=== PATIENT | male | born 1980 | race Caucasian/White ===

== ENCOUNTER 2018-04-22 09:49 | Inpatient (IN) | payer BC, SELFPAY ==
[~2018-04-22 09:49] MED LIST: NA CHLORIDE 0.9% 2,000 ML ONE
[2018-04-22] MEDS ORDERED: NOREPINEPHRINE 4mg/D5W 250mL 4 MG/250 ML BAG IV ONE (10:23)
[2018-04-22] MEDS ORDERED: LORazepam 2 MG/ML VIAL ONE (10:37)
[2018-04-22] MEDS ORDERED: EPINEPHrine 1 MG/10 ML SYR ONE (10:54)
--- NOTE | 2018-04-22 11:03 | RAD REPORT ---
EXAM DESCRIPTION: RAD - Chest Single View - 04/22/2018 10:55 am CLINICAL HISTORY: unresponsive Chest pain. COMPARISON: CHEST PA AND LAT 2 VIEW dated 11/16/2013; CHEST PA AND LAT 2 VIEW dated 06/10/2004 FINDINGS: Portable technique limits examination quality. Opacities in both upper lobes noted likely representing pneumonia or asymmetric pulmonary edema. Tip of the ET tube is above the mellisa. Enteric tube descends in the stomach. The heart size is normal.
[2018-04-22 11:27] LABS: Absolute Lymphocytes (CBC) 5.6 K/uL (0.7-4.9); Absolute Monocytes 0.7 K/uL (0.1-1.3); Absolute Neutrophil 11.2 K/uL (1.8-8.0); Basophils % 0.4 % (0-1.3); Eosinophils % 1.7 % (0-4.4); Hematocrit 38.7 % (39.6-49.0); Lymphocytes % 31.3 % (15.3-44.8); MCH 31.7 pg (27.0-35.0); MCV 101.2 fL (80-100); MPV 8.5 fL (7.6-11.3); Monocytes % 3.9 % (3.3-12.3); RBC Red Blood Cell Count 3.82 M/uL (4.33-5.43)
[2018-04-22 11:30] LABS: Protime INR 1.23
[2018-04-22] MEDS ORDERED: AZITHROMYCIN 500 MG/250 ML BAG ONE (11:48)
[2018-04-22] MEDS ORDERED: CEFTRIAXONE/SWI 1gm 1 GM/10 ML SYR ONE (11:48)
[2018-04-22 11:53] LABS: ALT/SGPT 132 U/L (12-78); AST/SGOT 152 U/L (15-37); Albumin 2.4 g/dL (3.4-5.0); Alkaline Phosphatase 91 U/L (45-117); BUN Blood Urea Nitrogen 11 mg/dL (7-18); Bicarbonate 18 mmol/L (21-32); Bilirubin Direct < 0.1 mg/dL (0-0.2); Bilirubin Total 0.2 mg/dL (0.2-1.0); Creatine Phosphokinase 529 U/L (39-308); Glucose Level 387 mg/dL (74-106); NT PRO-BNP 7 pg/mL (<125); Potassium 3.4 mmol/L (3.5-5.1); Protein, Total 4.7 g/dL (6.4-8.2); Sodium Level 148 mmol/L (136-145)
[2018-04-22 11:55] LABS: CKMB Creatine Kinase MB 56.8 ng/mL (0.3-3.6)
--- NOTE | 2018-04-22 11:56 | ER ---
Nurse's Notes [facility] Name: Phil Smart Age: 37 yrs Sex: Male : 1980 Arrival Date: 04/22/2018 Time: 09:59 Bed 4 Private MD: Diagnosis: Cardiac arrest;Pneumonia;Non-ST elevation (NSTEMI) myocardial infarction Presentation: 04/22 09:59 Presenting complaint: EMS states: pt was found to be unresponsive at the job site by co sg workers, purple discoloration noted from nipple line to head, CPR administered at scene, pt covered in own vomitus, big chunky. Transition of care: patient was not received from another setting of care. Onset of symptoms was April 22, 2018. Risk Assessment: Do you want to hurt yourself or someone else? Patient reports no desire to harm self or others. Initial Sepsis Screen: Does the patient meet any 2 criteria? No. Patient's initial sepsis screen is negative. Does the patient have a suspected source of infection?. Care prior to arrival: Oral airway placed, a mateo tube CPR via thumper performed by EMS and is still in progress Medication(s) given: EPIx 6, Sodium Bicarb x1 IV initiated. IO X 2 L collins and R collins Glucose check: 148 Oxygen administered. via AMBU bag. 09:59 Acuity: HI 1 sg 09:59 Method Of Arrival: EMS: [facility] sg 09:59 Activity prior to arrival: unresponsive. sg 09:59 Compressions began prior to arrival. sg Historical: - Allergies: 12:13 No Known Allergies; sg - Home Meds: 10:15 Unable to obtain [Active]; sg - PMHx: 10:15 Unable to obtain; sg - PSHx: 10:15 Unable to obtain; sg - Immunization history:: Adult Immunizations unknown. - Social history:: Smoking status: unknown. - Ebola Screening: : Unable to complete screening because patient is unresponsive. - Unable to obtain history due to: comatose state, unresponsive. Screenin:56 Abuse screen: unable to obtain d/t pt condition. Nutritional screening: No deficits sg noted. Tuberculosis screening: unable to obtain d/t pt condition . Fall Risk None identified. Assessment: 09:56 CPR assessment: unresponsive, pupils fixed \T\ dilated, no respiratory effort, intubated, sg Ambu ventilation, pale, pulses present w/ compressions. Cardiac rhythm is PEA. 09:57 CPR assessment: unresponsive, pupils fixed \T\ dilated, no respiratory effort, intubated, sg Ambu ventilation, pale, pulses present w/ compressions. 10:00 CPR assessment: unresponsive, pupils fixed \T\ dilated, no respiratory effort, intubated, sg Ambu ventilation, pulses present w/ compressions. Cardiac rhythm is PEA. Cardiac rhythm is PEA. 10:00 General: Appears distressed, unkempt, Behavior is unresponsive. Neuro: Level of sg Consciousness is unresponsive. Respiratory: a mateo tube is noted via oral airway, pt ventilated via AmbuBag with 100 % o2 at 15 lpm. GI: Abdomen is round distended, dried vomit noted on pt face neck and chest, on clothing that is cut by EMS RN SANE. Derm: Skin is pale, Skin temperature is cool. 10:03 CPR assessment: unresponsive, pupils fixed \T\ dilated, no respiratory effort, intubated, sg Ambu ventilation, pale, pulses present w/ compressions. Cardiac rhythm is PEA. 10:07 CPR assessment: unresponsive, pupils fixed \T\ dilated, no respiratory effort, intubated, sg Ambu ventilation, pale, pulses present w/ compressions. Cardiac rhythm is PEA. 10:12 CPR assessment: unresponsive, pupils fixed \T\ dilated, no respiratory effort, intubated, sg Ambu ventilation, pale, pulses present w/ compressions. Cardiac rhythm is PEA. 10:14 Cardiac rhythm is palpable pulses noted to L carotid and R femoral per ER staff. sg 10:18 Reassessment: Pt belongings Black Socks, brown boots, a black wallet, keys with small sg black aldrich chain, a white color watch, remains at pt bedside until family arrives. 10:20 CPR assessment: unresponsive, pupils fixed \T\ dilated, no respiratory effort, intubated, sg mechanical ventilation, pulses present w/ compressions, at bedside. Cardiac rhythm is PEA. 10:24 Reassessment: No pulse, CPR initiated, at bedside. sg 10:28 CPR assessment: unresponsive, pupils fixed \T\ dilated, no respiratory effort, intubated, sg mechanical ventilation, pale, pulses present w/ compressions. Cardiac rhythm is bradycardia. 10:33 CPR assessment: unresponsive, pupils fixed \T\ dilated, no respiratory effort, intubated, sg mechanical ventilation, pale, pulses present w/ compressions. Cardiac rhythm is PEA. 10:37 CPR assessment: unresponsive, pupils fixed \T\ dilated, no respiratory effort, intubated, sg Ambu ventilation, pale, pulses present w/ compressions. Cardiac rhythm is PEA. 10:50 Cardiac rhythm is SR 87 bpm, palpable right femoral. sg 10:50 General: Appears distressed, obese, unkempt, Behavior is unresponsive. Pain: Unable to sg use pain scale. Patient is unresponsive. Neuro: Level of Consciousness is unresponsive, Oriented to none. Cardiovascular: Pulses are palpable in right femoral artery and left carotid pulse. Respiratory: Airway is patent via oral airway Respiratory pattern is symmetrical. GI: Abdomen is round distended. : No deficits noted. EENT: No deficits noted. Derm: Skin is intact, Skin is pink, Skin temperature is warm. Musculoskeletal: No signs and/or symptoms reported regarding the musculoskeletal system. 11:22 Reassessment: pt brother speaking with , instructed to with hold CPR if the pt sg were to code again, per family wishes. 12:08 Reassessment: notified of EKG changes, awaiting new orders at this time. sg Reassessment: pt remains on monitors and [employer] at this time,awaiting EKG and Resp prior to pt transport to CT. 12:12 Reassessment: EKG at bedside at this time. sg 12:24 Reassessment: Pt transported to CT with natasha urena RT, and Jeremiah RN. hb 12:31 Reassessment: Pt returned from CT. hb 12:40 Reassessment: at bedside evaluating pt at this time, family at bedside, sg awaiting a bed assignment for admission, awaiting CT scan results, will continue to monitor. 13:00 Reassessment: Patient appears in no apparent distress at this time. pt remains sg intubated, unresponsive to verbal/tactile stimuli, pt remains on monitors at this time, srx 2, bed in low and locked position Patient states symptoms have not improved. Vital Signs: 09:57 Temp 97.9(R); sg 10:09 Temp 96.2(R); sg 10:14 BP 78 / 65; Pulse 52 MON; Resp 12 A; Pulse Ox 90% on 100% FiO2 ETT vent; sg 10:29 BP 151 / 85; Pulse 80 LF; Resp 16 A; Pulse Ox 97% on 100% FiO2 ETT vent; sg 10:39 BP 106 / 71; Pulse 84 MON; Resp 14 A; Pulse Ox 96% on 100% FiO2 ETT vent; sg 10:46 Pulse 32 MON; sg 11:03 BP 58 / 50; Pulse 50; Resp 14 A; Pulse Ox 98% on 100% FiO2 ETT vent; sg 11:18 BP 90 / 56; Pulse 78 LF; Resp 16 A; Pulse Ox 99% on 100% FiO2 ETT vent; sg 11:34 BP 104 / 64; Pulse 75; Resp 16 A; Pulse Ox 99% on 100% FiO2 ETT vent; Weight 124.74 kg; sg 12:06 BP 103 / 51; Pulse 100; Resp 20 A; Pulse Ox 99% on 100% FiO2 ETT vent; sg 12:25 BP 92 / 60; Pulse 92 MON; Resp 20 S; Pulse Ox 100% on 100% FiO2 ETT vent; sg 13:00 BP 95 / 62; Pulse 103 MON; Resp 20; Pulse Ox 99% on 100% FiO2 ETT vent; sg 13:30 BP 82 / 48; Pulse 108 MON; Resp 20 A; Pulse Ox 99% on 100% FiO2 ETT vent; sg 10:46 PEA, CPR initiated sg Vitals: 13:00 Cardiac Rhythm Assessment Sinus rhythm. ED Course: 09:50 Inserted saline lock: 20 gauge in left antecubital area, using aseptic technique. IV sg inserted by Julee JUNE. 09:59 Patient arrived in ED. 10:04 Intubation: Ventilated with 100% bag valve mask (BVM) prior to procedure. O2 saturation sg prior to procedure was 74 %. 7.5 Fr. ETT placed orally. Performed by Arnol Keita MD Successful on third attempt. Placement verified by CO2 detector w/ + color change, auscultating bilateral breath sounds, O2 saturation after procedure was 97 %. 10:04 ETT measures 24 cm at the teeth. sg 10:04 Assisted provider with intubation using 7.5 mm ETT via oral route. ET tube secured at sg 24cm at the teeth. Intubated by Arnol Keita MD Placement verified by CO2 detector w/ + color change, auscultating bilateral breath sounds. 10:06 NGT: inserted 18 Fr. via left nare. to intermittent suction. sg 10:07 Triage completed. sg 10:14 Arnol Keita MD is Attending Physician. rn 10:15 Patient has correct armband on for positive identification. Bed in low position. Call sg light in reach. Side rails up X2. 10:16 Arm band placed on. sg 10:21 Jeremiah Hernandez, RN is Primary Nurse. sg 10:36 Assisted provider with central line placement. Set up central line tray. Triple lumen sg line placed in right femoral. Line placed by Arnol Keita MD Placement verified by blood return, Dressed with Tegaderm, Patient tolerated well. Before procedure, did Practitioner(s) obtain informed consent? No. Patient \T\ family education about procedure, CLABSI prevention and S/S of infection? No. Time-out/Briefing performed prior to start of procedure? Yes. Was handwashing/sanitizing done immediately prior to procedure? Yes. Was patient positioned to in a way to prevent air embolism? Yes. Was procedure site sterilized? Yes, with Iodine per physician request. Was the site allowed to dry? Yes. Was local anesthetic and/or sedation utilized? Yes. During the procedure, did the Practitioner(s) maintain a sterile field? Yes. Were unused ports clamped during insertion? Yes. Was a 2nd qualified MD obtained after 3 unsuccessful insertion attempts? No. Was blood aspirated from each lumen? Yes. After the procedure, did the Practitioner(s) clean the site and apply a sterile dressing? Yes. 10:42 Assisted provider with intubation Placement verified by CXR. sg 10:56 XRAY Chest (1 view) In Process Unspecified. EDMS 11:00 X-ray completed. jb2 11:03 EKG done, by nursing technician. reviewed by Arnol Keita MD times three. at1 11:55 Abimbola Kennedy MD is Hospitalizing Provider. rn 12:00 Lerner cath inserted, using sterile technique, 16 Fr., by ED staff, balloon inflated, to sg gravity drainage, Patient tolerated pt remains unresponsive at this time no urine output noted, will reassess. 13:50 Patient admitted, IV remains in place. intact, No redness/swelling at site. sg Administered Medications: 09:53 Drug: EPINEPHrine 0.1mg/mL 1:10,000 1 mg Route: IVP; Site: left antecubital; sg 09:54 Drug: Sodium Bicarbonate 1 amp Route: IVP; Site: left antecubital; sg 09:57 Drug: EPINEPHrine 0.1mg/mL 1:10,000 1 mg Route: IVP; Site: left antecubital; sg 10:00 Drug: Succinylcholine 100 mg Route: IVP; Site: left antecubital; sg 10:01 Drug: EPINEPHrine 0.1mg/mL 1:10,000 1 mg Route: IVP; Site: left antecubital; sg 10:04 Drug: EPINEPHrine 0.1mg/mL 1:10,000 1 mg Route: IVP; Site: left antecubital; sg 10:04 Drug: Sodium Bicarbonate 1 amp Route: IVP; Site: left antecubital; sg 10:08 Drug: EPINEPHrine 0.1mg/mL 1:10,000 1 mg Route: IVP; Site: left antecubital; sg 10:08 Drug: Sodium Bicarbonate 1 amp Route: IVP; Site: left antecubital; sg 10:11 Drug: Sodium Bicarbonate 1 amp Route: IVP; Site: left antecubital; sg 10:18 Drug: NS 0.9% 1000 ml Route: IV; Rate: 1000 ml; Site: left antecubital; sg 10:18 Drug: Levophed (4 mg/250 mL D5W 4 mcg/min Route: IV; Rate: calculated rate; Site: left sg antecubital; 10:38 Follow up: Rate change 15 mcg/min; IV SiteChange: right femoral; IV SiteChange Reason: sg Infiltration; site change for more therapeutic results through central line access 11:06 Follow up: Rate change 20 mcg/kg/min sg 12:40 Follow up: Rate change 25 mcg/min hb 10:35 Drug: EPINEPHrine 0.1mg/mL 1:10,000 1 mg Route: IVP; Site: left antecubital; sg 10:36 Drug: Ativan 2 mg Route: IVP; Site: left antecubital; sg 10:48 Drug: EPINEPHrine 0.1mg/mL 1:10,000 1 mg Route: IVP; Site: right femoral; sg 10:50 Drug: Sodium Bicarbonate 1 amp Route: IVP; Site: right femoral; sg 11:10 Drug: Dopamine drip 5 mcg/kg/min - (DOPamine 400 mg, D5W 250 ml) Route: IV; Rate: sg calculated rate; Site: right femoral; 11:48 Drug: AZITHromycin 500 mg Route: IVPB; Infused Over: 1 hrs; Site: right femoral; sg 11:50 Drug: Rocephin - (cefTRIAXone) 1 grams Route: IVPB; Infused Over: 30 mins; Site: left sg antecubital; 11:57 Drug: D5W 1000 ml, Sodium Bicarbonate 150 mEq Route: IV; Rate: 150 ml/hr; Site: right sg femoral; Point of Care Testing: Blood Glucose: 09:50 Blood Glucose: 202 mg/dL; sg Ranges: Intake: Ventilator: 10:04 Fi02: 100%; Rate: 16min; T.V.: 550ml; Peep: 5cm; ET tube: 7.5 mm (Oral); sg 10:04 Fi02: 100%; Rate: 20min; T.V.: 550ml; Peep: 5cm; ET tube: 7.5 mm; sg 10:04 AC MODE sg 10:04 AC MODE sg Outcome: 11:56 Decision to Hospitalize by Provider. rn 13:50 Admitted to ICU accompanied by nurse, accompanied by tech, via stretcher, room 6, with sg chart, Report called to Alix JUNE 13:50 critical 13:50 Instructed on pt family counseled on the need for admit, pt belongings remain in belonging bag x2 in exam room 4 prior to transport, pt belongings placed on stretcher and transported to ICU with pt for admission Demonstrated understanding of instructions. 13:50 Outcome Resuscitation successful sg 13:52 Patient left the ED. Signatures: Dispatcher [employer] EDMS Jeremiah Hernandez RN RN Jesus Alvarez2 Arnol Keita MD MD rn Smirch, Shelby, RN RN Mariola Pennington, business team leader EKG Tat1 Julee Anaya RN RN Corrections: (The following items were deleted from the chart) 10:13 09:59 Care prior to arrival: Oral airway placed, a mateo tube CPR via thumper performed sg by EMS and is still in progress Medication(s) given: sg 11:29 10:06 NGT: inserted 18 Fr. via right nare. to intermittent suction. sg sg 11:52 09:57 CPR assessment: unresponsive, pupils fixed \T\ dilated, no respiratory effort, sg intubated, Ambu ventilation, pale, pulses present w/ compressions, sg 17:46 13:50 Instructed on pt family counseled on the need for admit Demonstrated sg understanding of instructions, sg
--- NOTE | 2018-04-22 11:57 | EDPHYS ---
Physician Documentation [facility] Name: Phil Smart Age: 37 yrs Sex: Male : 1980 Arrival Date: 04/22/2018 Time: 09:59 Bed 4 Private MD: ED Physician Arnol Keita HPI: 04/22 11:34 This 37 yrs old Male presents to ER via EMS with complaints of CPR, rn Unresponsive. 11:34 Preceding the arrest, the patient collapsed, was found down. The arrest occurred at rn work. The patient has not experienced similar symptoms in the past. The patient has not recently seen a physician. Found down at work, unwitnessed, CPR by EMS for 30 min, no known history, asystole, never cardiac activity per EMS, mateo tube in place, continued to throw up entire time with EMS. . Historical: - Allergies: 12:13 No Known Allergies; sg - Home Meds: 10:15 Unable to obtain [Active]; sg - PMHx: 10:15 Unable to obtain; sg - PSHx: 10:15 Unable to obtain; sg - Immunization history:: Adult Immunizations unknown. - Social history:: Smoking status: unknown. - Ebola Screening: : Unable to complete screening because patient is unresponsive. - Unable to obtain history due to: comatose state, unresponsive. ROS: 11:44 Unable to obtain ROS due to comatose state. rn Exam: 11:44 Constitutional: Overweight male, GCS 3, ongoing CPR Head/Face: Normocephalic, rn atraumatic. Eyes: Pupils 7mm, unreactive ENT: oropharynx with copius vomitus and gastric contents, suction unable to keep up, has mateo tube in place Cardiovascular: no spont cardiac activity Respiratory: diminished breath sounds bilaterally, no spont breaths Abdomen/GI: firm, distended MS/ Extremity: No spont pulses Neuro: GCS 3, unresponsive Vital Signs: 09:57 Temp 97.9(R); sg 10:09 Temp 96.2(R); sg 10:14 BP 78 / 65; Pulse 52 MON; Resp 12 A; Pulse Ox 90% on 100% FiO2 ETT vent; sg 10:29 BP 151 / 85; Pulse 80 LF; Resp 16 A; Pulse Ox 97% on 100% FiO2 ETT vent; sg 10:39 BP 106 / 71; Pulse 84 MON; Resp 14 A; Pulse Ox 96% on 100% FiO2 ETT vent; sg 10:46 Pulse 32 MON; sg 11:03 BP 58 / 50; Pulse 50; Resp 14 A; Pulse Ox 98% on 100% FiO2 ETT vent; sg 11:18 BP 90 / 56; Pulse 78 LF; Resp 16 A; Pulse Ox 99% on 100% FiO2 ETT vent; sg 11:34 BP 104 / 64; Pulse 75; Resp 16 A; Pulse Ox 99% on 100% FiO2 ETT vent; Weight 124.74 kg; sg 12:06 BP 103 / 51; Pulse 100; Resp 20 A; Pulse Ox 99% on 100% FiO2 ETT vent; sg 12:25 BP 92 / 60; Pulse 92 MON; Resp 20 S; Pulse Ox 100% on 100% FiO2 ETT vent; sg 13:00 BP 95 / 62; Pulse 103 MON; Resp 20; Pulse Ox 99% on 100% FiO2 ETT vent; sg 13:30 BP 82 / 48; Pulse 108 MON; Resp 20 A; Pulse Ox 99% on 100% FiO2 ETT vent; sg 10:46 PEA, CPR initiated sg Ventilator: 10:04 Fi02: 100%; Rate: 16min; T.V.: 550ml; Peep: 5cm; ET tube: 7.5 mm (Oral); sg 10:04 Fi02: 100%; Rate: 20min; T.V.: 550ml; Peep: 5cm; ET tube: 7.5 mm; sg 10:04 AC MODE sg 10:04 AC MODE sg Procedures: 11:47 CPR: See CPR flow sheet. Initial patient assessment: unresponsive, pulses present w/ rn compressions, The presenting cardiac rhythm is asystole. ventilations per thumper, mateo tube, Compressions: began prior to arrival. Meds given: See Meds list. Atropine Epinephrine regained rhythm, Family notified. Intubation: Ventilated with 100% NRB prior to procedure. O2 saturation prior to procedure was 25 %. Intubated orally using # 4 Derick blade with 7.5 mm ETT. Successful on third attempt. Cricoid pressure applied during procedure. Tube secured at right side of mouth measured 23 cm at teeth. Placement verified by CXR, CO2 detector with (+) color change, auscultating bilateral breath sounds, O2 saturation after procedure was 97 %. Patient tolerated well. Central Line: the site was prepped with Betadine, in sterile fashion, a triple lumen catheter was inserted, in the right femoral vein, in 1 attempts. placement was verified, by blood return, the patient tolerated the procedure, well. MDM: 10:14 Patient medically screened. rn 11:47 Differential diagnosis: arrythmia, cardiac arrest, respiratory arrest, traumatic rn injury. Data reviewed: vital signs, nurses notes, lab test result(s), and as a result, I will admit patient. Counseling: I had a detailed discussion with the patient and/or guardian regarding: the historical points, exam findings, and any diagnostic results supporting the discharge/admit diagnosis, lab results, radiology results, the need for further work-up and treatment in the hospital. 11:47 Response to treatment: the patient's symptoms have mildly improved after treatment. fountain pen turner orders: after a detailed discussion of the patient's condition and case, the admit orders are written by me. ED course: Pt regained pulse and cardiac activity, spoke with family, aware of how sick he is, global ischemia on ECG, on dopamine and levophed, family most recently state if loses pulse again to not perform CPR/ACLS, otherwise ok with abx and drips. Notified Dr. Kennedy, admit to ICU. . 04/22 10:40 Order name: Basic Metabolic Panel; Complete Time: 12:33 04/22 10:40 Order name: CBC with Diff; Complete Time: 12:04/22 10:40 Order name: Ckmb; Complete Time: 12:04/22 10:40 Order name: CPK; Complete Time: 12:04/22 10:40 Order name: LFT's; Complete Time: 12:04/22 10:40 Order name: Magnesium; Complete Time: 12:04/22 10:40 Order name: NT PRO-BNP; Complete Time: 12:04/22 10:40 Order name: PT-INR; Complete Time: :43 04/22 10:40 Order name: Ptt, Activated; Complete Time: :43 04/22 10:40 Order name: Troponin (emerg Dept Use Only); Complete Time: 12:33 04/22 10:40 Order name: XRAY Chest (1 view); Complete Time: 11:29 rn 04/22 10:40 Order name: CT Head Brain wo Cont rn 04/22 12:04 Order name: ABG eb 04/22 12:32 Order name: CBC Smear Scan; Complete Time: 12:33 EDIN 04/22 12:48 Order name: CT; Complete Time: 12:49 EDIN 04/22 10:40 Order name: EKG; Complete Time: 10:41 rn 04/22 10:40 Order name: Cardiac monitoring; Complete Time: 11:00 rn 04/22 10:40 Order name: EKG - Nurse/Tech; Complete Time: 11:00 rn 04/22 10:40 Order name: IV Saline Lock; Complete Time: 11:00 rn 04/22 10:40 Order name: Labs collected and sent; Complete Time: 11:00 rn 04/22 10:40 Order name: O2 Per Protocol; Complete Time: 11:00 rn 04/22 10:40 Order name: O2 Sat Monitoring; Complete Time: 11:00 rn 04/22 12:02 Order name: EKG Electrocardiogram EDIN 04/22 12:02 Order name: EKG Electrocardiogram [facility] 04/22 12:27 Order name: Lerner; Complete Time: 12:28 hb Administered Medications: 09:53 Drug: EPINEPHrine 0.1mg/mL 1:10,000 1 mg Route: IVP; Site: left antecubital; sg 09:54 Drug: Sodium Bicarbonate 1 amp Route: IVP; Site: left antecubital; sg 09:57 Drug: EPINEPHrine 0.1mg/mL 1:10,000 1 mg Route: IVP; Site: left antecubital; sg 10:00 Drug: Succinylcholine 100 mg Route: IVP; Site: left antecubital; sg 10:01 Drug: EPINEPHrine 0.1mg/mL 1:10,000 1 mg Route: IVP; Site: left antecubital; sg 10:04 Drug: EPINEPHrine 0.1mg/mL 1:10,000 1 mg Route: IVP; Site: left antecubital; sg 10:04 Drug: Sodium Bicarbonate 1 amp Route: IVP; Site: left antecubital; sg 10:08 Drug: EPINEPHrine 0.1mg/mL 1:10,000 1 mg Route: IVP; Site: left antecubital; sg 10:08 Drug: Sodium Bicarbonate 1 amp Route: IVP; Site: left antecubital; sg 10:11 Drug: Sodium Bicarbonate 1 amp Route: IVP; Site: left antecubital; sg 10:18 Drug: NS 0.9% 1000 ml Route: IV; Rate: 1000 ml; Site: left antecubital; sg 10:18 Drug: Levophed (4 mg/250 mL D5W 4 mcg/min Route: IV; Rate: calculated rate; Site: left sg antecubital; 10:38 Follow up: Rate change 15 mcg/min; IV SiteChange: right femoral; IV SiteChange Reason: sg Infiltration; site change for more therapeutic results through central line access 11:06 Follow up: Rate change 20 mcg/kg/min sg 12:40 Follow up: Rate change 25 mcg/min hb 10:35 Drug: EPINEPHrine 0.1mg/mL 1:10,000 1 mg Route: IVP; Site: left antecubital; sg 10:36 Drug: Ativan 2 mg Route: IVP; Site: left antecubital; sg 10:48 Drug: EPINEPHrine 0.1mg/mL 1:10,000 1 mg Route: IVP; Site: right femoral; sg 10:50 Drug: Sodium Bicarbonate 1 amp Route: IVP; Site: right femoral; sg 11:10 Drug: Dopamine drip 5 mcg/kg/min - (DOPamine 400 mg, D5W 250 ml) Route: IV; Rate: sg calculated rate; Site: right femoral; 11:48 Drug: AZITHromycin 500 mg Route: IVPB; Infused Over: 1 hrs; Site: right femoral; sg 11:50 Drug: Rocephin - (cefTRIAXone) 1 grams Route: IVPB; Infused Over: 30 mins; Site: left sg antecubital; 11:57 Drug: D5W 1000 ml, Sodium Bicarbonate 150 mEq Route: IV; Rate: 150 ml/hr; Site: right sg femoral; Point of Care Testing: Blood Glucose: 09:50 Blood Glucose: 202 mg/dL; sg Ranges: Critical Glucose Levels:Adult <50 mg/dl or >400 mg/dl <40 mg/dl or >180 mg/dl Disposition: 11:47 Critical Care:. rn Disposition: 04/22/18 11:56 Hospitalization ordered by Abimbola Kennedy for Inpatient Admission. Preliminary diagnosis are Cardiac arrest, Pneumonia, Non-ST elevation (NSTEMI) myocardial infarction. - Bed requested for Intensive Care Unit. - Status is Inpatient Admission. ss - Condition is Guarded. - Problem is new. - Symptoms have improved. UTI on Admission? No Critical care time excluding procedures: 11:47 Critical care time: Bedside Care: 55 minutes, Consultation: 5 minutes, Family rn Intervention: 10 minutes. Total time: 70 minutes Signatures: Dispatcher [employer] EDMS Jeremiah Hernandez RN RN Arnol Keita MD MD rn Smirch, Shelby, RN RN Julee Anaya RN RN hb Botello, Elizabeth eb Corrections: (The following items were deleted from the chart) 12:44 11:56 Hospitalization Ordered by Abimbola Kennedy MD for Inpatient Admission. Preliminary eb diagnosis is Cardiac arrest; Pneumonia; Non-ST elevation (NSTEMI) myocardial infarction. Bed requested for Intensive Care Unit. Status is Inpatient Admission. Condition is Guarded. Problem is new. Symptoms have improved. UTI on Admission? No. rn 13:52 12:44 04/22/2018 11:56 Hospitalization Ordered by Abimbola Kennedy MD for Inpatient ss Admission. Preliminary diagnosis is Cardiac arrest; Pneumonia; Non-ST elevation (NSTEMI) myocardial infarction. Bed requested for Intensive Care Unit. Status is Inpatient Admission. Condition is Guarded. Problem is new. Symptoms have improved. UTI on Admission? No. eb
[2018-04-22] MEDS ORDERED: D5W 1,000 ML with NA BICARB 8.4% 150 MEQ IV SCH ×2 (12:00)
[2018-04-22] MEDS ORDERED: ONDANSETRON 4 MG/2 ML VIAL IV PRN (12:23)
[2018-04-22] MEDS ORDERED: ACETAMINOPHEN 650MG/RECT SUPP PR PRN (12:23)
[2018-04-22 12:32] LABS: Blood Morphology Comment NOT SEEN (NOT SEEN); Platelet Estimate ADEQ; Urine White Blood Cell Casts OK
--- NOTE | 2018-04-22 12:48 | RAD REPORT ---
EXAM DESCRIPTION: CT - Head Brain Wo Cont - 04/22/2018 12:27 pm CLINICAL HISTORY: CPR Drowsiness COMPARISON: No comparisons TECHNIQUE: All CT scans are performed using dose optimization technique as appropriate and may inclu de automated exposure control or mA/KV adjustment according to patient size. FINDINGS: Diffuse cerebral edema pattern is noted. The ventricles are very small in size, particular ly the third and fourth ventricle. Basal cisterns of appear effaced.No midline shift is seen. Fluid is present in the paranasal sinuses. Endotracheal and nasogastric tubes are present. The calvar ium is intact. IMPRESSION: A significant diffuse cerebral edema pattern is noted with basilar cistern effacement. A noxic brain injury is probably present.
[2018-04-22] MEDS ORDERED: NOREPINEPHRINE 4 MG in D5W 250 ML IV PRN (13:47)
[2018-04-22 14:17] VITALS: O2SAT 99
[2018-04-22] MEDS ORDERED: NOREPINEPHRINE 8 MG in Dextrose 5%-Water 500 ML IV PRN (14:28)
[2018-04-22] MEDS ORDERED: NA CHLORIDE 0.9% 1,000 ML ONE (14:37)
[2018-04-22 14:52] VITALS: BMI 39.2
--- NOTE | 2018-04-22 15:09 | EKG ---
Test Date: 2018-04-22 Test Time: 10:39:06 Specialized Developer: JOSELITO MEASUREMENT RESULTS: Intervals: Rate: 92 LA: 312 QRSD: 102 QT: 382 QTc: 472 [place]: P: 45 LA: 312 QRS: 63 T: 212 INTERPRETIVE STATEMENTS: Sinus rhythm with 1st degree AV block Marked ST abnormality, possible inferior subendocardial injury Marked ST abnormality, possible anteroseptal subendocardial injury Abnormal ECG Compared to ECG 04/22/2018 10:19:23 First degree AV block now present ST (T wave) deviation now present Idioventricular rhythm no longer present Left-axis deviation no longer present Right bundle-branch block no longer present Electronically Signed On 04-22-18 15:08:54 CDT by Garth Reed
[2018-04-22 15:10] LABS: Arterial Blood Carboxyhemoglob 0.9 % (0-1.5)
--- NOTE | 2018-04-22 15:10 | EKG ---
Test Date: 2018-04-22 Test Time: 10:19:23 Outside Residential Sales Professional: JOSELITO MEASUREMENT RESULTS: Intervals: Rate: 38 NC: QRSD: 146 QT: 424 QTc: 337 [place]: P: NC: QRS: -35 T: 146 INTERPRETIVE STATEMENTS: Idioventricular rhythm Left axis deviation Right bundle branch block Abnormal ECG Compared to ECG 04/22/2018 10:18:14 Idioventricular rhythm now present Uncertain supraventricular rhythm no longer present Electronically Signed On 04-22-18 15:08:58 CDT by Garth Reed
--- NOTE | 2018-04-22 15:10 | EKG ---
Test Date: 2018-04-22 Test Time: 10:18:14 Snowboarding Instructor: JOSELITO MEASUREMENT RESULTS: Intervals: Rate: 42 VT: QRSD: 132 QT: 392 QTc: 327 [place]: P: VT: QRS: -33 T: -51 INTERPRETIVE STATEMENTS: Wide QRS rhythm Left axis deviation Right bundle branch block Abnormal ECG Compared to ECG 06/10/2004 15:24:00 Uncertain supraventricular rhythm now present Left-axis deviation now present Right bundle-branch block now present Sinus tachycardia no longer present Electronically Signed On 04-22-18 15:09:01 CDT by Garth Reed
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
[2018-04-22] MEDS ORDERED: PIPER/TAZO/NS 2.25gm 2.25 GM/50 ML BAG IVPB SCH (17:00)
[2018-04-22 17:18] VITALS: BP 115/92
[2018-04-22 17:57] VITALS: TEMP 96.3
[2018-04-22] MEDS ORDERED: ATROPINE SULF 1 MG/10 ML SYR IV ONE (18:09)
[2018-04-22] MEDS ORDERED: DOPAMINE/D5W 400 MG/250 ML BAG IV ONE (18:09)
[2018-04-22] MEDS ORDERED: SUCCINYLCHOLINE 20 MG/ML (10 ML) IV ONE (18:09)
[2018-04-22] MEDS ORDERED: EPINEPHrine 1 MG/10 ML SYR IV ONE (18:09)
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
--- NOTE | 2018-04-23 11:35 | ECHO ---
HEIGHT: 5 ft 9 in WEIGHT: 266 lb 0 oz DATE OF STUDY: 04/22/[address]: Garth Reed MD 2-DIMENSIONAL: YES M.MODE: YES DOPPLER: NO COLOR FLOW: NO TDS: YES PORTABLE: YES DEFINITY: NO BUBBLE STUDY: NO DIAGNOSIS: EVALUATE EJECTION FRACTION CARDIAC HISTORY: CATHERIZATION: NO SURGERY: NO PROSTHETIC VALVE: NO PACEMAKER: NO MEASUREMENTS (cm) DIASTOLIC (NORMALS) SYSTOLIC (NORMALS) IVSd (0.6-1.2) LA Diam (1.9-4.0) LVEF 64% LVIDd (3.5-5.7) LVIDs (2.0-3.5) %FS % LVPWd (0.6-1.2) Ao Diam (2.0-3.7) 2 DIMENSIONAL ASSESSMENT: RIGHT ATRIUM: NORMAL LEFT ATRIUM: NORMAL RIGHT VENTRICLE: NORMAL LEFT VENTRICLE: NORMAL TRICUSPID VALVE: NORMAL MITRAL VALVE: NORMAL PULMONIC VALVE: NORMAL AORTIC VALVE: NORMAL PERICARDIAL EFFUSION: NONE AORTIC ROOT: NORMAL LEFT VENTRICULAR WALL MOTION: NORMAL. DOPPLER/COLOR FLOW: NOT REQUESTED. COMMENTS: TECHNICALLY DIFFICULT STUDY. NORMAL EJECTION FRACTION. NO EFFUSION. NO WALL MOTION ABNORMALITY. TECHNOLOGIST: NAHED RODRIGUEZ
--- NOTE | 2018-04-23 11:51 | EEG ---
CHART: [id number] TEST ID#: [id number] DATE OF STUDY: 04/22/2018 THE EEG WAS RECORDED PORTABLE IN THE ICU ON A 14 CHANNEL MACHINE. ELECTRODES WERE APPLIED IN THE USUAL MANNER USING THE INTERNATIONAL 10-20 SYSTEM. THERE IS NO ELECTROCEREBRAL ACTIVITY RECORDED DURING THIS STUDY. HYPERVENTILATION WAS NOT PERFORMED. PHOTIC STIMULATION WAS NOT DONE. IMPRESSION: THIS IS A SEVERELY ABNORMAL EEG DUE TO THE ABSENCE OF ELECTROCEREBRAL ACTIVITY. IN THE ABSENCE OF SEVERE HYPOTHERMIA AND DEEP SEDATING MEDICATIONS THIS FINDING INDICATES BRAIN .
--- NOTE | 2018-04-23 18:21 | P.DS ---
Admission Date: 04/22/18 Discharge Date: 04/23/18 Disposition: Reason for Admission: Cardiac arrest Hospital Course: Patient is a 37-year-old male who came in with cardiac arrest coded for 1 hr with return of circulation. Patient was nonresponsive hypothermic in hypotensive shock maxed out on [address] scan and EEG showed brain . Patient was admitted to the ICU however family change status to DNR and they requested withdrawal of care. Patient does have history of methamphetamine abuse. Assessment: 1. Cardiac arrest. 2. Anoxic brain injury. 3. Morbid obesity. 4. History of methamphetamine abuse. 5. Nicotine dependence. 6. Multiorgan failure. 7. Hypotensive shock, on 3 pressors now. 8. Probable aspiration pneumonia. 9. History of alcohol use. 10. Acute kidney injury. 11. Hypocalcemia. 12. Hypermagnesemia. 13. Hypoalbuminemia. 14. Severe acidosis. 15. Hypothermia. Vital Signs/Physical Exam: Temp Pulse Resp BP Pulse Ox 96.3 F L 114 H 20 115/92 H 85 L 04/22/18 14:00 04/22/18 16:15 04/22/18 16:00 04/22/18 16:15 04/22/18 16:00 Other Physical/Emotional Findings: PLEASE SEE H&P Laboratory Data at Discharge: WBC 17.8 K/uL (4.3-10.9) H 04/22/18 10:55 Hgb 12.1 g/dL (13.6-17.9) L 04/22/18 10:55 Hct 38.7 % (39.6-49.0) L 04/22/18 10:55 Plt Count 211 K/uL (152-406) 04/22/18 10:55 PT 14.6 SECONDS (9.5-12.5) H 04/22/18 10:55 INR 1.23 04/22/18 10:55 APTT 82.8 SECONDS (24.3-36.9) H 04/22/18 10:55 Sodium 148 mmol/L (136-145) H 04/22/18 10:55 Potassium 3.4 mmol/L (3.5-5.1) L 04/22/18 10:55 BUN 11 mg/dL (7-18) 04/22/18 10:55 Creatinine 1.60 mg/dL (0.55-1.3) H 04/22/18 10:55 Glucose 387 mg/dL (74-106) H 04/22/18 10:55 Magnesium 3.0 mg/dL (1.8-2.4) H 04/22/18 10:55 Total Bilirubin 0.2 mg/dL (0.2-1.0) 04/22/18 10:55 AST 152 U/L (15-37) H 04/22/18 10:55 ALT 132 U/L (12-78) H 04/22/18 10:55 Alkaline Phosphatase 91 U/L (45-117) 04/22/18 10:55 Home Medications: NK [No Home Meds] 04/22/18
--- NOTE | 2018-04-24 12:17 | EKG ---
Test Date: 2018-04-22 Test Time: 12:15:46 Immigration Attorney: RAUL MEASUREMENT RESULTS: Intervals: Rate: 105 [place]: QRSD: 100 QT: 366 QTc: 483 [place]: P: VT: QRS: 54 T: 55 INTERPRETIVE STATEMENTS: Atrial fibrillation with rapid ventricular response Nonspecific ST abnormality, probably digitalis effect Abnormal ECG Compared to ECG 04/22/2018 10:39:06 Sinus rhythm no longer present First degree AV block no longer present ST (T wave) deviation still present Electronically Signed On 04-24-18 12:08:42 CDT by Garth Reed
== END 2018-04-22 18:10 | disposition expired | DRG 296 ==
LOC: ER 09:49 → ERHOLD 12:10 → 3RD-ICU 13:52
PROVIDERS: ADMIT Family Medicine; ATTEND Family Medicine
PROC: 5A12012 Performance of Cardiac Output, Single, Manual (ICD-10-PCS; principal; 2018-04-22)
PROC: 0BH17EZ Insertion of Endotracheal Airway into Trachea, Via Natural or Artificial Opening (ICD-10-PCS; 2018-04-22)
PROC: 5A1935Z Respiratory Ventilation, Less than 24 Consecutive Hours (ICD-10-PCS; 2018-04-22)
DX: I46.9 Cardiac arrest, cause unspecified (principal); J69.0 Pneumonitis due to inhalation of food and vomit; G93.1 Anoxic brain damage, not elsewhere classified; N17.9 Acute kidney failure, unspecified; E87.2 Acidosis; R57.1 Hypovolemic shock; E66.01 Morbid (severe) obesity due to excess calories; Z68.39 Body mass index [BMI] 39.0-39.9, adult; F15.11 Other stimulant abuse, in remission; Z72.89 Other problems related to lifestyle; F17.210 Nicotine dependence, cigarettes, uncomplicated; E83.51 Hypocalcemia; E83.41 Hypermagnesemia; E88.09 Other disorders of plasma-protein metabolism, not elsewhere classified; T68.XXXA Hypothermia, initial encounter; Z66 Do not resuscitate
CPT/HCPCS: 31500; 36415; 51702; 70450; 71045; 80048; 80076; 82550; 82553; 82805; 83735; 83880; 84484; 85025; 85610; 85730; 92950; 93005; 93306; 93307; 94002; 95816; 99291; 99292; J0171; J0330; J0456; J0696; J1265; J7030; J7060